=== PATIENT | male | born 1960 | race Caucasian/White ===

== ENCOUNTER 2017-10-30 17:34 | Emergency (ER) | payer OTHER ==
[~2017-10-30] VITALS: Ht 172.7 cm; Wt 103.4 kg
[~2017-10-30 17:34] MED LIST: AMLODIPINE BESYL5 MG PO; DELZICOL400 M1 PO; GLUCOPHAGE500 MG PO; KLOR-CON 1010 MEQ PO; LOSARTAN-HCTZ1 EAC2 PO; LOVASTATIN40 MG PO; METOPROLOL SUCC50 MG PO; OMEPRAZOLE20 MG PO
[2017-10-30] MEDS ORDERED: FLOMAX0.4 MG PO (17:58)
== END 2017-10-30 18:54 | disposition short-term general hospital (02) ==
LOC: ED 17:34
DX: R31.9 Hematuria, unspecified (principal); R33.9 Retention of urine, unspecified; Z79.899 Other long term (current) drug therapy; Z79.84 Long term (current) use of oral hypoglycemic drugs
CPT/HCPCS: 80053; 85025; 96374; 96375; 99285; J1170; J2060

== ENCOUNTER 2018-11-24 13:05 | Day surgery (SDC) | payer OTHER ==
[~2018-11-24] VITALS: Ht 172.7 cm; Wt 209.0 kg
[~2018-11-24 13:05] MED LIST changes: +FLOMAX0.4 MG PO
--- NOTE | 2018-11-24 16:07 | NUR ---
11/24/18 1607 Eric Olivas PATIENT ARRIVES ALERT , BUT SLEEPING. LAYING ON LEFT SIDE, 0 C/O PAIN. PULSE LOW AT 50, BUT WAS 50 BEFORE ENDO. PATIENT STATED THAT IT IS NORMAL FOR HIM TO BE LOW.
--- NOTE | 2018-11-25 14:41 | OR ---
[facility] [address], [place] [address] Signed DATE OF OPERATION: 11/24/2018 SURGEON: Gonzalo Juarez MD PREOPERATIVE DIAGNOSIS: Longstanding suspicious Crohn's proctitis, history of terminal ileitis, possibly Crohn's. POSTOPERATIVE DIAGNOSES: Mild chronic low rectal inflammation and external hemorrhoidal changes. PROCEDURE: Total colonoscopy to cecum with biopsy of cecum and rectum. ANESTHESIA: Intravenous sedation, fentanyl 100 mcg, and Versed 5 mg. INDICATION: A 58-year-old white man, patient of Dr. Maricarmen Murray formally Dr. Obi Shepard with clinical symptoms over the years of low-grade Crohn disease. This included an episode of terminal ileitis with obstruction, which resolved clinically and long-standing perianal hemorrhoidal changes and episodic fissure highly suggestive of Crohn disease. This is only a clinical suspicion. Biopsies have not confirmed Crohn's per se. He was admitted at this time to undergo colonoscopy understanding the risks of bleeding, infection, and perforation. FINDINGS: The prep was excellent. Complete colonoscopy was undertaken to the cecum. Despite multiple efforts, the ileum could not be intubated. The cecum did not appear particularly inflamed. Biopsies were obtained. Remaining colon was normal except in the low rectum where chronic inflammatory change was noted. Biopsies were obtained there. There were external hemorrhoidal changes. No obvious open fissure at this time. Biopsies of the rectum were obtained as well. DESCRIPTION OF PROCEDURE: The patient was brought to the endoscopy suite and placed in lateral decubitus position given intravenous sedation to the point of slurred speech and nystagmus. Digital rectal examination was somewhat uncomfortable and mild narrowing of the anal canal was noted. External hemorrhoidal changes were noted as well. An Olympus video colonoscope was passed in the rectum and manipulated throughout the colon ultimately intubating the cecum. The ileocecal valve was not easily identified as to its aperture or opening. No Electronically Signed By: GONZALO JUAREZ MD 11/25/18 7227 PATIENT NAME: ELIDIA PANDA OPERATIVE REPORT DATE OF : 56 REPORT #: [id number] PHYSICIAN: GONZALO JUAREZ MD PCP: MARICARMEN MURRAY PA-C REPORT IS CONFIDENTIAL AND NOT TO BE RELEASED WITHOUT AUTHORIZATION [facility] [address], [place] [address] Signed episodic bubbles would come from the area. Various manipulations were undertaken to be intubate it, but it simply could not be done. Eventually, further efforts were abandoned and biopsies then taken of the cecum. Scope was carefully withdrawn and remaining colon appeared generally normal. The low rectum had mild chronic inflammatory change and biopsies were obtained. Careful inspection of the anal canal showed no sign of fissure proper, though there were definite external hemorrhoidal tags suggestive of inflammatory bowel disease. The scope was removed and the patient was taken to recovery room in good condition. CONCLUDING DIAGNOSIS: Clinical suspicion remains high as he does have Crohn's proctitis with resultant perianal disease and recurrent fissure type problems. Consideration has been made for possible biologic agents for management. We will see him back in the office in a few weeks and review his pathology reports and a plan going forward. MD KEN Be/MODL /[id number] cc: Maricarmen Murray PA-C Copies: MARICARMEN MURRAY PA-C ~ Electronically Signed By: GONZALO JUAREZ MD 11/25/18 1441 PATIENT NAME: ELIDIA PANDA OPERATIVE REPORT DATE OF : 56 REPORT #: [id number] PHYSICIAN: GONZALO JUAREZ MD PCP: MARICARMEN MURRAY PA-C REPORT IS CONFIDENTIAL AND NOT TO BE RELEASED WITHOUT AUTHORIZATION
== END 2018-11-24 16:40 | disposition home or self-care (01) ==
LOC: OPS 13:05 → DS 13:08 → OPS 13:45 → DS 13:45 → OPS 16:40
PROVIDERS: Surgery
PROC: 0DBP8ZX Excision of Rectum, Via Natural or Artificial Opening Endoscopic, Diagnostic (ICD-10-PCS; 2018-11-24)
PROC: 0DBH8ZX Excision of Cecum, Via Natural or Artificial Opening Endoscopic, Diagnostic (ICD-10-PCS; principal; 2018-11-24 13:45)
DX: K62.89 Other specified diseases of anus and rectum (principal); K64.4 Residual hemorrhoidal skin tags; I10 Essential (primary) hypertension; E11.9 Type 2 diabetes mellitus without complications; K21.9 Gastro-esophageal reflux disease without esophagitis; E78.5 Hyperlipidemia, unspecified; K50.90 Crohn's disease, unspecified, without complications; Z87.19 Personal history of other diseases of the digestive system; Z98.890 Other specified postprocedural states
CPT/HCPCS: 99153; G0500; J2250; J3010; J7120

== ENCOUNTER 2025-02-11 06:40 | Day surgery (SDC) | payer MEDICARE, OTHER ==
[~2025-02-11] VITALS: Ht 172.7 cm; Wt 84.5 kg
[~2025-02-11 06:40] MED LIST changes: +FAMOTIDINE40 MG PO; +FINASTERIDE5 MG PO; +METFORMIN HCL500 MG PO; +MIDAZOLAM HCL 5 MG/5 ML VIAL IV PRN; +fentaNYL citrate 100 MCG/2 ML VIAL IV PRN
[2025-02-11] MEDS ORDERED: LACTATED RINGER'S 1,000 ML IV SCH (07:00)
[2025-02-11] MEDS ORDERED: LIDOCAINE HCL 1% 5 ML SDV INJ ONE (07:00)
[2025-02-11] MEDS ORDERED: IBLOOD GLUCOSE TEST STRIP 1 EA TEST VI PRN (07:00)
[2025-02-11] MEDS ORDERED: LIDOCAINE HCL 4% 50 ML BTL TOP SCH (07:00)
[2025-02-11 07:02] VITALS: BP 124/79
--- NOTE | 2025-02-11 07:27 | NUR ---
AT AND IS MEDICAL TERRITORY MANAGER.
[2025-02-11] MEDS ORDERED: MIDAZOLAM HCL 5 MG/5 ML VIAL ONE (08:17)
[2025-02-11] MEDS ORDERED: fentaNYL citrate 100 MCG/2 ML VIAL ONE (08:18)
--- NOTE | 2025-02-11 09:19 | NUR ---
02/11/25 0919 Heike Davis 0912 PT ARRIVED TO PACU ON 3L VIA NC, PT ASLEEP AND RESP EVEN AND UNLABORED. 917 PT WAKES TO TACTILE STIMULI AND REORIENT TO PACU. PT EASILY FALLS BACK TO SLEEP.
[2025-02-11 10:05] VITALS: BP 140/66
--- NOTE | 2025-02-11 10:14 | NUR ---
RETURNED FROM PACU TOO SLEEPY TO GO HOME. ALLOW MORE TIME.
[2025-02-11 11:05] VITALS: BP 137/73
--- NOTE | 2025-02-11 11:25 | NUR ---
AWAKE ALERT. READY TO GO HOME. STATES HES PASSING GAS.
--- NOTE | 2025-02-12 14:10 | OR ---
[facility] [address], [place] [address] Signed DATE OF OPERATION: 02/11/2025 SURGEON: Gonzalo Juarez MD PREOPERATIVE DIAGNOSES: 1. Longstanding reflux disease. 2. Crohn disease dominantly distal; history of serrated adenoma of cecum 2023. POSTOPERATIVE DIAGNOSES: 1. Normal upper endoscopy, mild effacement of flap valve. 2. Mild chronic proctitis, likely related to Crohn disease. PROCEDURES: 1. Esophagogastroduodenoscopy with biopsy. 2. Total colonoscopy to cecum with biopsy. ANESTHESIA: Intravenous sedation, fentanyl 200 mcg, and Versed 10 mg, total. INDICATION: This 64-year-old white man is a patient of Dr. Erazo. He is well known to me from the past. He does have a diagnosis of Crohn's colitis most dominantly manifesting his rectal and perianal area as well as sigmoid and previously manifested as diarrhea. He did take mesalamine, but no longer takes it and seems to be well controlled regarding his symptoms. This is mostly a perianal manifestation. He has also had sigmoid colitis manifesting as diarrhea, but again no dominant symptoms currently. He underwent colonoscopy a year ago by me, which showed a serrated adenoma of the cecum. Additionally, he has longstanding reflux disease, though no known manifestation of Crohn's in regard to this. He is admitted at this time to undergo upper endoscopy and colonoscopy. He understands the risk of bleeding, infection, perforation, and so on. FINDINGS: Upper endoscopy appeared essentially normal. The flap valve was somewhat effaced, but there is no obvious esophagitis, gastritis, or other similar problem. On colonoscopy, the prep was adequate. Complete colonoscopy was undertaken of the cecum. There appeared to be tenderness upon digital examination, but no sign of active infection and no fistulizing change. There did appear to be some mild chronic proctitis. He did have hypertrophic anal papilla. There was no evidence of recurrent or persistent polyp of cecum. Electronically Signed By: GONZALO JUAREZ MD 02/12/25 1410 PATIENT NAME: ELIDIA PANDA OPERATIVE REPORT DATE OF : 56 REPORT #: [id number] PHYSICIAN: GONZALO JUAREZ MD PCP: TEO ERAZO MD REPORT IS CONFIDENTIAL AND NOT TO BE RELEASED WITHOUT AUTHORIZATION [facility] [address], [place] [address] Signed DESCRIPTION OF PROCEDURE: The patient was brought to the endoscopy suite, given lidocaine topical hypopharyngeal anesthesia and a bite block was placed. An intravenous sedation induced to point of slurred speech and nystagmus. The Olympus video upper endoscope was passed in the hypopharynx. The vocal cords were normal. Scope was advanced to the esophagus throughout its length, it appeared normal. Upon entering the stomach, the gastric folds were noted to be normal as was the antral mucosa. The pylorus was normal. Scope was passed through it into the duodenum, which was essentially normal. Biopsies were taken of the duodenum. The scope was withdrawn. Biopsies taken of the antrum for both AVRIL and pathologic testing. Retroflexed view showed a somewhat effaced flap valve, but no large hiatal hernia. The scope was withdrawn to the distal esophagus where biopsies were obtained as was the middle esophagus. The scope was withdrawn, removed. Plans were then made for colonoscopy. Additional sedation was given. Digital rectal examination performed, which showed some tenderness and resistance to placement of the colonoscope initially. Once entered the rectum, some chronic inflammatory change was noted. No sign of active inflammation or ulceration. There was no true anal stenosis. The Olympus colonoscope was passed around the colon, ultimately intubating the cecum. The ileocecal valve and appendiceal orifice were normal. Appeared to be no active inflammation there. Attempts to enter the ileocecal valve were unsuccessful. The scope was then manipulated to allow for biopsy of the cecum. The scope was withdrawn and biopsies taken throughout including the right colon, transverse, sigmoid and rectum. The low rectum appeared to have some chronic inflammatory change, but no sign of neoplasm or severe inflammation. Scope was removed. The patient was taken to the recovery room in good condition. CONCLUDING DIAGNOSES: 1. Clinical gastroesophageal reflux, no evidence of active esophagitis while on Pepcid b.i.d. Would recommend continued use of medication. 2. Crohn's colitis. No sign of active disease and no sign of recurrent or persistent polyp of cecum. PLAN: If he should restart his symptoms of Crohn disease from the past, including diarrhea, pain, and so on, re-initiation of mesalamine would be strongly advised. For now, he wishes to avoid mesalamine and that is reasonable as long as his symptoms are controlled. Electronically Signed By: GONZALO JUAREZ MD 02/12/25 1410 PATIENT NAME: ELIDIA PANDA OPERATIVE REPORT DATE OF : 56 REPORT #: [id number] PHYSICIAN: GONZALO JUAREZ MD PCP: TEO ERAZO MD REPORT IS CONFIDENTIAL AND NOT TO BE RELEASED WITHOUT AUTHORIZATION [address] [place], [place] [address] Signed MD KEN Be/DILEEP /[id number] Copies: ~ Electronically Signed By: GONZALO JUAREZ MD 02/12/25 1410 PATIENT NAME: ELIDIA PANDA OPERATIVE REPORT DATE OF : 56 REPORT #: [id number] PHYSICIAN: GONZALO JUAREZ MD PCP: TEO ERAZO MD REPORT IS CONFIDENTIAL AND NOT TO BE RELEASED WITHOUT AUTHORIZATION
--- NOTE | 2025-02-16 16:14 | PATH ---
[facility] [address] [facility] [place] [address] Signed SPECIMEN(S): A DUODENAL BIOPSY SPECIMEN(S): B ANTRUM BIOPSY SPECIMEN(S): C DISTAL ESOPHAGEAL BIOPSY SPECIMEN(S): D MIDDLE ESOPHAGEAL BIOPSY SPECIMEN(S): E CECUM BIOPSY SPECIMEN(S): F ASCENDING BIOPSY SPECIMEN(S): G TRANSVERSE BIOPSY SPECIMEN(S): H SIGMOID BIOPSY SPECIMEN(S): I RECTUM BIOPSY SPECIMEN SOURCE: A. DUODENAL BIOPSY B. ANTRUM BIOPSY C. DISTAL ESOPHAGEAL BIOPSY D. MIDDLE ESOPHAGEAL BIOPSY E. CECUM BIOPSY F. ASCENDING BIOPSY G. TRANSVERSE BIOPSY H. SIGMOID BIOPSY I. RECTUM BIOPSY CLINICAL HISTORY: Pre-history of colitis 2023 history of serrated adenoma cecum GERD. Post: EGD-normal,:-Chronic inflammation of rectum A-I) biopsy FINAL PATHOLOGIC DIAGNOSIS: A. Duodenal biopsy: - Benign duodenal mucosa, negative for specific diagnostic abnormality. B. Antrum biopsy: - Benign gastric mucosa with focal slight chronic inflammation. - Negative for evidence of Helicobacter organisms on routine HE-stained sections. C. Distal esophageal biopsy: - Benign esophageal epithelium, negative for increased epithelial eosinophils. - Negative for glandular mucosa. D. Middle esophageal biopsy: - Benign esophageal epithelium, negative for increased epithelial eosinophils. - Negative for glandular mucosa. E. Cecum biopsy: - Benign colonic mucosa, negative for pathologic inflammation. PATIENT NAME: ELIDIA PANDA PATHOLOGY DATE OF : 56 REPORT #: [id number] PHYSICIAN: TETO DAY PCP: TEO RAY MD REPORT IS CONFIDENTIAL AND NOT TO BE RELEASED WITHOUT AUTHORIZATION [facility] [address], [place] [address] Signed F. Ascending biopsy: - Benign colonic mucosa, negative for pathologic inflammation. G. Transverse biopsy: - Benign colonic mucosa, negative for pathologic inflammation. H. Sigmoid biopsy: - Benign colonic mucosa, negative for pathologic inflammation. I. Rectum biopsy: - Benign colonic mucosa, negative for pathologic inflammation. - Focal slight hyperplastic features. JVR:[facility] MICROSCOPIC EXAMINATION: Histologic sections of all submitted blocks are examined by light microscopy. These findings, together with the gross examination, support the pathologic diagnosis. GROSS DESCRIPTION: A. The specimen, labeled and designated "Dannielle, duodenal biopsy," is received in formalin and consists of three villalta soft tissue fragments, ranging from 0.3-0.4 cm. Entirely submitted in (A1). B. The specimen, labeled and designated "Dannielle, antrum biopsy," is received in formalin and consists of two villalta soft tissue fragments, ranging from 0.3-0.7 cm. Entirely submitted in (B1). C. The specimen, labeled and designated "Dannielle, distal esophageal biopsy," is received in formalin and consists of two villalta soft tissue fragments, ranging from 0.2-0.4 cm. Entirely submitted in (C1). D. The specimen, labeled and designated "Dannielle, middle esophageal biopsy," is received in formalin and consists of two villalta soft tissue fragments, ranging from 0.2-0.4 cm. Entirely submitted in (D1). E. The specimen, labeled and designated "Dannielle, cecum biopsy," is received in formalin and consists of one villalta soft tissue fragment, 1.1 cm. Entirely submitted in (E1). F. The specimen, labeled and designated "Dannielle, ascending biopsy," is received in formalin and consists of two villalta soft tissue fragments, ranging from 0.3-0.6 cm. Entirely submitted in (F1). G. The specimen, labeled and designated "Dannielle, transverse biopsy," is received in formalin and consists of two villalta soft tissue fragments, ranging from 0.2-0.3 cm. Entirely submitted in (G1). H. The specimen, labeled and designated "Dannielle, sigmoid biopsy," is received in formalin and consists of three villalta soft tissue fragments, ranging from 0.2-0.7 PATIENT NAME: ELIDIA PANDA PATHOLOGY DATE OF : 56 REPORT #: [id number] PHYSICIAN: TETO DAY PCP: TEO RAY MD REPORT IS CONFIDENTIAL AND NOT TO BE RELEASED WITHOUT AUTHORIZATION [facility] [address], [place] [address] Signed cm. Entirely submitted in (H1). I. The specimen, labeled and designated "Dannielle, right biopsy," is received in formalin and consists of three villalta soft tissue fragments, ranging from 0.3-0.4 cm. Entirely submitted in (I1). AB (under the direct supervision of a pathologist) The Gross Description was prepared using a voice recognition system. The report was reviewed for accuracy; however, sound-alike word errors, addition and/or deletions may occur. If there is any question about this report, please contact Client Services. PERFORMING LABORATORY: Technical component was performed by [facility], [address] [place] [id number] (CLIA# [id number]). Professional interpretation was performed by [facility], [address] [place] [address], [place] [address] (CLIA#: [id number]). Diagnostician: Vivek Hu MD Pathologist Electronically Signed 02/16/2025 Copies: ~ PATIENT NAME: ELIDIA PANDA PATHOLOGY DATE OF : 56 REPORT #: [id number] PHYSICIAN: [facility] PCP: TEO RAY MD REPORT IS CONFIDENTIAL AND NOT TO BE RELEASED WITHOUT AUTHORIZATION
== END 2025-02-11 11:30 | disposition home or self-care (01) ==
LOC: DS 06:40
PROVIDERS: ATTEND Surgery
PROC: 0DB98ZX Excision of Duodenum, Via Natural or Artificial Opening Endoscopic, Diagnostic (ICD-10-PCS; principal; 2025-02-11 08:15)
PROC: 0DBH8ZX Excision of Cecum, Via Natural or Artificial Opening Endoscopic, Diagnostic (ICD-10-PCS; principal; 2025-02-11 08:15)
DX: K50.10 Crohn's disease of large intestine without complications (principal); K52.9 Noninfective gastroenteritis and colitis, unspecified; K29.70 Gastritis, unspecified, without bleeding; K21.9 Gastro-esophageal reflux disease without esophagitis; K62.89 Other specified diseases of anus and rectum; N40.0 Benign prostatic hyperplasia without lower urinary tract symptoms; I10 Essential (primary) hypertension; E11.9 Type 2 diabetes mellitus without complications; E78.5 Hyperlipidemia, unspecified; Z79.84 Long term (current) use of oral hypoglycemic drugs; Z79.899 Other long term (current) drug therapy
CPT/HCPCS: 99153; G0500; J2250; J3010; J7121